=== PATIENT | female | born 1955 | race Caucasian/White ===

== ENCOUNTER → 2018-03-23 | Outpatient (CLI) | payer MEDICARE ==
[~2018-03-23] MED LIST: ALPR-475 PO; ASPI-515 PO; ATOR20TA PO; CARV6.2512 PO; ENOX60SY4 SQ; LISI5TAB7 PO; OXYC5TAB3 PO; WARF2.5T73 PO-COUM
== END | disposition home or self-care (01) ==
LOC: CFH 15:06
PROVIDERS: ATTEND Physician Assistant Surgical
DX: M94.262 Chondromalacia, left knee (principal); R60.0 Localized edema

== ENCOUNTER 2019-02-22 23:33 | Inpatient (IN) | payer MEDICARE ==
[~2019-02-22] VITALS: Ht 154.9 cm; Wt 57.0 kg
[~2019-02-22 23:33] MED LIST changes: +WARF2.5T32 PO-COUM; -WARF2.5T73 PO-COUM
--- NOTE | 2019-02-22 23:51 | NUR ---
TOÑO PARRA FROM [facility], [place] FOR EVAL BY VASCULAR SX FOR DX OF LLE DVT. L GROIN PAIN/LLE EDEMA X TWO DAYS. +STRONG/REGULAR PEDAL PULSES. PT DENIES CP/SOB PT DC'D FROM HOSPITAL 02/08 FOLLOWING PLACEMENT OF COLOSTOMY 02/02 FOR TX OF DIVERTICULITIS. HX OF CA. BP/SPO2/ECG MONITORING IN PLACE. NSR ON MONITOR. IV HEPARIN STOPPED UPON ARRIVAL. AWAITING ERP EVAL/ ORDERS.
[2019-02-23] MEDS ORDERED: SODIUM CHLORIDE FLUSH 10ML SYR IVF ONE (00:30)
--- NOTE | 2019-02-23 00:30 | NUR ---
PER ERP, AWAITING HEPARIN ADMIN FOR ANTI-Xa DRAW
[2019-02-23 00:41] LABS: BASOPHILS # (AUTO) 0.02 x10^3/uL (0-0.1); BASOPHILS % (AUTO) 0 % (0-1); EOSINOPHILS # (AUTO) 0.09 x10^3/uL (0-0.4); EOSINOPHILS % (AUTO) 1 % (1-7); LYMPHOCYTES % (AUTO) 18 % (22-44); MD NO; MEAN CORPUSCULAR HGB CONC 33.4 g/dL (32.4-35.8); MEAN PLATELET VOLUME 7.4 fL (7.4-10.4); MONOCYTES # (AUTO) 0.72 x10^3/uL (0.2-0.8); MONOCYTES % (AUTO) 8 % (2-9); NEUTROPHILS # (AUTO) 6.57 x10^3/uL (1.8-6.8); NEUTROPHILS % (AUTO) 73 % (42-75); PLATELET COUNT 461 x10^3/uL (130-400); RED BLOOD COUNT 3.38 x10^6/uL (3.82-5.3); RED CELL DISTRIBUTION WIDTH 14.5 % (9.6-15.2)
[2019-02-23 00:54] LABS: ALBUMIN 2.7 g/dL (3.4-5.0); ANION GAP 6 mmol/L (5-15); CALCIUM 8.8 mg/dL (8.5-10.1); CHLORIDE 105 mmol/L (98-107); CREATININE 0.51 mg/dL (0.55-1.02)
[2019-02-23 01:09] LABS: INTERNATIONAL NORMALIZED RATIO 1.14 (0.93-1.1); PROTHROMBIN TIME 11.9 Seconds (9.6-11.5)
[2019-02-23] MEDS ORDERED: HEPARIN 25,000 UNITS/500ML PMX 500 ML ONE (01:26)
--- NOTE | 2019-02-23 01:30 | NUR ---
HEPARIN STARTED. PER MARCELINA LOCKHART- BEGIN HEPARIN PROTOCOL IF AT 6HOUR RECHECK SINCE HEPARIN WAS STARTED HEAD MECHANIC. PER PROTOCOL, NO BOLUS GIVEN. HEPARIN STARTED PER PROTOCOL.
[2019-02-23] MEDS: HEPARIN 25,000 UNITS/500ML PMX 500 ML IV PRN (01:32)
[2019-02-23] MEDS: HEPARIN 5,000 UNITS/ML, 1ML IV PRN ×4 (01:33→23:18)
--- NOTE | 2019-02-23 01:58 | NUR ---
REPORT TO MARCELINA MESSER
[2019-02-23] MEDS ORDERED: ONDANSETRON 2MG/ML, 2ML IVPush PRN (02:00)
[2019-02-23] MEDS ORDERED: ONDANSETRON ODT 4 MG PO PRN (02:00)
[2019-02-23] MEDS ORDERED: DOCUSATE 100 MG CAPSULE PO PRN (02:00)
[2019-02-23] MEDS ORDERED: PROMETHAZINE 25 MG/ML, 1ML IM PRN (02:00)
[2019-02-23] MEDS ORDERED: POLYETHYLENE GLYCOL 17 GM PACKET PO PRN (02:00)
[2019-02-23] MEDS ORDERED: hydrALAzine 20 MG/ML, 1ML IVPush PRN (02:00)
[2019-02-23] MEDS ORDERED: BISACODYL 10 MG SUPP PR PRN (02:00)
[2019-02-23] MEDS ORDERED: morphine SULFATE 10 MG/ML, 1ML IVPush PRN (02:00)
[2019-02-23 02:14] VITALS: BP 118/57
[2019-02-23 02:23] LABS: FREE T4 (FREE THYROXINE) 1.36 ng/dL (0.76-1.46); THYROID STIMULATING HORMONE 1.95 mIU/L (0.358-3.740)
[2019-02-23 02:37] LABS: HEMOGLOBIN A1C 6.9 % (4.2-6.3)
[2019-02-23] MEDS: ACETAMINOPHEN 325 MG TABLET PO PRN ×2 (02:42→09:29)
[2019-02-23 06:56] VITALS: BP 109/58
[2019-02-23] MEDS: HYDROcodone/APAP 5/325 TABLET PO PRN ×2 (13:55→19:28)
[2019-02-23 13:58] VITALS: BP 119/62
[2019-02-23 18:59] VITALS: BP 114/62
[2019-02-24 00:33] VITALS: BP 117/59
[2019-02-24] MEDS: HEPARIN 25,000 UNITS/500ML PMX 500 ML IV PRN (02:50)
[2019-02-24] MEDS: HYDROcodone/APAP 5/325 TABLET PO PRN ×4 (02:51→21:41)
[2019-02-24 05:09] LABS: BASOPHILS # (AUTO) 0.03 x10^3/uL (0-0.1); BASOPHILS % (AUTO) 0 % (0-1); EOSINOPHILS # (AUTO) 0.11 x10^3/uL (0-0.4); EOSINOPHILS % (AUTO) 2 % (1-7); LYMPHOCYTES # (AUTO) 1.11 x10^3/uL (1-3.4); LYMPHOCYTES % (AUTO) 15 % (22-44); MD NO; MEAN CORPUSCULAR HEMOGLOBIN 27.3 pg (27.0-34.8); MEAN CORPUSCULAR HGB CONC 32.4 g/dL (32.4-35.8); MEAN CORPUSCULAR VOLUME 84.5 fL (80-100); MEAN PLATELET VOLUME 7.4 fL (7.4-10.4); MONOCYTES # (AUTO) 0.59 x10^3/uL (0.2-0.8); MONOCYTES % (AUTO) 8 % (2-9); NEUTROPHILS # (AUTO) 5.61 x10^3/uL (1.8-6.8); NEUTROPHILS % (AUTO) 75 % (42-75); PLATELET COUNT 449 x10^3/uL (130-400); RED BLOOD COUNT 3.23 x10^6/uL (3.82-5.3); RED CELL DISTRIBUTION WIDTH 14.8 % (9.6-15.2)
[2019-02-24 05:19] LABS: ALBUMIN 2.4 g/dL (3.4-5.0); ANION GAP 8 mmol/L (5-15); CHLORIDE 102 mmol/L (98-107)
[2019-02-24 05:24] LABS: ALANINE AMINOTRANSFERASE 11 U/L (12-78); ALKALINE PHOSPHATASE 72 U/L (45-117); BILIRUBIN,TOTAL 0.3 mg/dL (0.2-1.0); CHOL/HDL RATIO 4.5; CHOLESTEROL, TOTAL 131 mg/dL (140-239); HDL CHOL % 22 % (28-40); HDL CHOLESTEROL (DIRECT) 29 mg/dL (40-60); LDL CHOLESTEROL,CALCULATED 67 mg/dL (54-169); LDL/HDL RATIO 2.3 (0.5-3.0); TOTAL PROTEIN 6.9 g/dL (6.4-8.2); TRIGLYCERIDES 177 mg/dL (50-200); VLDL CHOLESTEROL 35 mg/dL (0-25)
[2019-02-24 08:26] VITALS: BP 112/61
[2019-02-24] MEDS ORDERED: POTASSIUM CHLORIDE 20 MEQ TAB.ER.PRT PO ONE (10:00)
[2019-02-24 12:18] VITALS: BP 112/54
[2019-02-24 20:22] VITALS: BP 118/61
[2019-02-24] MEDS: APIXABAN 5 MG TABLET PO SCH (21:41)
[2019-02-25 00:39] VITALS: BP 112/62
[2019-02-25] MEDS: HYDROcodone/APAP 5/325 TABLET PO PRN ×2 (04:27→13:54)
[2019-02-25 07:44] VITALS: BP 110/57
[2019-02-25] MEDS: APIXABAN 5 MG TABLET PO SCH (09:13)
[2019-02-25 14:45] VITALS: BP 102/60
[2019-02-25] MEDS ORDERED: APIX5TAB PO (15:44)
[2019-02-25] MEDS ORDERED: OXYC1TAB7 PO (15:44)
[2019-02-25] MEDS ORDERED: DOCU-131 PO (15:44)
[2019-02-25 16:17] VITALS: BP 110/52
== END 2019-02-25 18:00 | disposition home health service (06) | DRG 300 ==
LOC: ED 02-23 00:29 → EDIP 02-23 00:34 → ED 02-23 00:48 → 4NOR 02-23 02:10
PROVIDERS: ADMIT Internal Medicine; ATTEND Internal Medicine
DX: I82.442 Acute embolism and thrombosis of left tibial vein (principal); I42.9 Cardiomyopathy, unspecified; E44.0 Moderate protein-calorie malnutrition; I82.422 Acute embolism and thrombosis of left iliac vein; I82.432 Acute embolism and thrombosis of left popliteal vein; I82.412 Acute embolism and thrombosis of left femoral vein; D64.9 Anemia, unspecified; F32.9 Major depressive disorder, single episode, unspecified; F41.9 Anxiety disorder, unspecified; I51.3 Intracardiac thrombosis, not elsewhere classified; Z93.3 Colostomy status; Z92.3 Personal history of irradiation; Z92.21 Personal history of antineoplastic chemotherapy; Z86.73 Personal history of transient ischemic attack (TIA), and cerebral infarction without residual deficits; Z90.710 Acquired absence of both cervix and uterus; Z85.3 Personal history of malignant neoplasm of breast; Z83.3 Family history of diabetes mellitus; Z80.1 Family history of malignant neoplasm of trachea, bronchus and lung; Z79.01 Long term (current) use of anticoagulants; Z90.49 Acquired absence of other specified parts of digestive tract; Z68.23 Body mass index [BMI] 23.0-23.9, adult
CPT/HCPCS: 36415; 80048; 80053; 80061; 82040; 83036; 83735; 84439; 84443; 85025; 85520; 85610; 85730; 99285; G0378; J1644

== ENCOUNTER 2019-05-09 19:05 | Emergency (ER) | payer MEDICARE ==
[~2019-05-09] VITALS: Ht 154.9 cm; Wt 63.8 kg
[~2019-05-09 19:05] MED LIST changes: +APIX5TAB PO; +DOCU-131 PO; +OXYC1TAB7 PO
[2019-05-09] MEDS ORDERED: L.E.T SOLUTION TP ONE ×2 (19:41→20:00)
[2019-05-09 20:05] VITALS: BP 151/88
== END 2019-05-09 20:09 | disposition home or self-care (01) ==
LOC: ED 20:03
DX: K25.4 Chronic or unspecified gastric ulcer with hemorrhage (principal); Z48.01 Encounter for change or removal of surgical wound dressing; Z90.49 Acquired absence of other specified parts of digestive tract; Z90.710 Acquired absence of both cervix and uterus
CPT/HCPCS: 99282

== ENCOUNTER 2019-10-29 08:23 | Outpatient (CLI) | payer MEDICARE ==
[~2019-10-29 08:23] MED LIST changes: -ALPR-475 PO; +ALPR0.5T7 PO
[2019-10-29] MEDS ORDERED: ASPI-496 PO (09:44)
[2019-10-29] MEDS ORDERED: APIX5TAB PO (09:44)
== END 2019-10-29 23:59 | disposition home or self-care (01) ==
LOC: STAR 08:23
PROVIDERS: ATTEND Surgery
DX: Z01.818 Encounter for other preprocedural examination (principal); Z43.3 Encounter for attention to colostomy
CPT/HCPCS: 36415; 80053; 85025; 93005

== ENCOUNTER 2019-11-17 05:42 | Inpatient (IN) | payer MEDICARE ==
[~2019-11-17] VITALS: Ht 154.9 cm; Wt 67.4 kg
[~2019-11-17 05:42] MED LIST changes: +ASPI-496 PO
[2019-11-17] MEDS ORDERED: LACTATED RINGERS 1,000 ML IV SCH (06:03)
[2019-11-17 06:35] VITALS: BP 99/76
[2019-11-17] MEDS ORDERED: EPINEPHRINE 1 MG/ML, 1ML ONE (06:40)
[2019-11-17] MEDS ORDERED: BUPIVACAINE/PF 0.5% ONE (06:40)
[2019-11-17] MEDS ORDERED: INDOCYANINE GREEN 25 MG VIAL ONE (07:00)
[2019-11-17] MEDS ORDERED: PROPOFOL 10 MG/ML, 20ML ONE (07:14)
[2019-11-17] MEDS ORDERED: FENTANYL PF 250 MCG/5ML ONE (07:14)
[2019-11-17] MEDS ORDERED: SUCCINYLCHOLINE 20 MG/ML, 10ML ONE (07:14)
[2019-11-17] MEDS ORDERED: ROCURONIUM 10MG/ML,5ML ONE (07:14)
[2019-11-17] MEDS ORDERED: MIDAZOLAM 1 MG/ML, 2ML ONE (07:14)
[2019-11-17] MEDS ORDERED: ROPIvacaine/PF 0.5%, 30 ML ONE (07:19)
[2019-11-17] MEDS ORDERED: BUPIVACAINE/PF 0.25% ONE (07:20)
[2019-11-17] MEDS ORDERED: SCOPOLAMINE PATCH, 1.5MG PATCH.TD72 TD ONE (07:30)
[2019-11-17] MEDS ORDERED: ACETAMINOPHEN 500 MG TABLET PO ONE (07:30)
[2019-11-17] MEDS ORDERED: GABAPENTIN 300 MG CAPSULE PO ONE (07:30)
[2019-11-17] MEDS ORDERED: CEFAZOLIN 1,000 MG ONE ×2 (07:36)
[2019-11-17] MEDS ORDERED: DEXAMETHASONE 4 MG/ML, 1ML ONE ×2 (07:36)
[2019-11-17] MEDS ORDERED: SUGAMMADEX 200 MG/2 ML IVPush ONE (09:41)
[2019-11-17] MEDS ORDERED: ONDANSETRON 2MG/ML, 2ML ONE (09:41)
[2019-11-17] MEDS ORDERED: ONDANSETRON 2MG/ML, 2ML IVPush PRN (10:00)
[2019-11-17] MEDS ORDERED: LORazepam 2 MG/ML, 1ML IVPush PRN (10:00)
[2019-11-17] MEDS ORDERED: PROMETHAZINE 25 MG/ML, 1ML IV PRN (10:00)
[2019-11-17] MEDS ORDERED: SCOPOLAMINE PATCH, 1.5MG PATCH.TD72 TD PRN (10:00)
[2019-11-17] MEDS ORDERED: DIAZEPAM 5 MG/ML, 2ML IVPush PRN (10:00)
[2019-11-17] MEDS ORDERED: PROMETHAZINE 12.5 MG SUPP PR PRN (10:00)
[2019-11-17] MEDS ORDERED: EPHEDRINE 50 MG/ML, 1ML IVPush PRN (10:00)
[2019-11-17] MEDS ORDERED: FENTANYL PF 100 MCG/2ML IV PRN (10:00)
[2019-11-17] MEDS ORDERED: ONDANSETRON ODT 8 MG PO PRN (10:00)
[2019-11-17] MEDS ORDERED: ONDANSETRON 2MG/ML, 2ML IV PRN (10:00)
[2019-11-17] MEDS ORDERED: MEPERIDINE/PF 25MG/ML,1ML IVPush PRN (10:00)
[2019-11-17] MEDS ORDERED: FENTANYL PF 100 MCG/2ML IVPush PRN (10:00)
[2019-11-17] MEDS ORDERED: MIDAZOLAM 1 MG/ML, 2ML IV PRN (10:00)
[2019-11-17] MEDS ORDERED: hydrALAzine 20 MG/ML, 1ML IV PRN (10:00)
[2019-11-17] MEDS ORDERED: HYDROmorphone 1 MG/ML, 1ML INJ IVPush PRN (10:00)
[2019-11-17] MEDS ORDERED: CALCIUM CARBONATE 500 MG TAB.CHEW PO PRN (10:00)
[2019-11-17] MEDS ORDERED: LABETALOL 5MG/ML, 20ML IV PRN (10:00)
[2019-11-17] MEDS ORDERED: HALOPERIDOL 5 MG/ML IV PRN (10:00)
[2019-11-17] MEDS ORDERED: OXYcodone 5 MG/5 ML ORAL.SOL UDC PO PRN (10:00)
[2019-11-17] MEDS ORDERED: ALBUTEROL SULFATE 2.5 MG/3 ML NPPB PRN (10:00)
[2019-11-17] MEDS ORDERED: MEPERIDINE/PF 25MG/ML,1ML ONE (11:11)
[2019-11-17] MEDS ORDERED: D5%-0.45NACL+KCL 20MEQ 1,000 ML IV SCH (12:14)
[2019-11-17 12:22] VITALS: BP 101/44
[2019-11-17 12:45] VITALS: BP 104/46
[2019-11-17] MEDS: IBUPROFEN 800 MG TABLET PO SCH ×3 (12:58→20:11)
[2019-11-17] MEDS: OXYcodone IR 5MG TABLET PO PRN (12:58)
[2019-11-17 19:53] VITALS: BP 100/42
[2019-11-17] MEDS: CEFTRIAXONE PMX 2GM/50ML 50 ML IVPB SCH (20:11)
[2019-11-17] MEDS: ENOXAPARIN 30 MG/0.3 ML SQ SCH (20:12)
[2019-11-18 00:17] VITALS: BP 99/42
[2019-11-18] MEDS: OXYcodone IR 5MG TABLET PO PRN ×2 (02:49→08:08)
[2019-11-18 03:17] LABS: BASOPHILS # (AUTO) 0.02 x10^3/uL (0-0.1); BASOPHILS % (AUTO) 0 % (0-1); EOSINOPHILS % (AUTO) 0 % (1-7); LYMPHOCYTES # (AUTO) 0.92 x10^3/uL (1-3.4); LYMPHOCYTES % (AUTO) 8 % (22-44); MD NO; MEAN CORPUSCULAR HEMOGLOBIN 28.7 pg (27.0-34.8); MEAN CORPUSCULAR HGB CONC 32.8 g/dL (32.4-35.8); MEAN CORPUSCULAR VOLUME 87.4 fL (80-100); MEAN PLATELET VOLUME 8.3 fL (7.4-10.4); MONOCYTES # (AUTO) 0.62 x10^3/uL (0.2-0.8); MONOCYTES % (AUTO) 6 % (2-9); NEUTROPHILS # (AUTO) 9.37 x10^3/uL (1.8-6.8); NEUTROPHILS % (AUTO) 86 % (42-75); PLATELET COUNT 291 x10^3/uL (130-400); RED BLOOD COUNT 3.93 x10^6/uL (3.82-5.3); RED CELL DISTRIBUTION WIDTH 14.2 % (9.6-15.2)
[2019-11-18 03:18] LABS: ALBUMIN 2.8 g/dL (3.4-5.0); ANION GAP 8 mmol/L (5-15); CALCIUM 8.2 mg/dL (8.5-10.1); CHLORIDE 107 mmol/L (98-107); CREATININE 1.01 mg/dL (0.55-1.02)
[2019-11-18 03:56] VITALS: BP_SYST 105
[2019-11-18 07:17] VITALS: BP 94/43
[2019-11-18] MEDS: ENOXAPARIN 30 MG/0.3 ML SQ SCH ×2 (08:08→20:34)
[2019-11-18] MEDS: IBUPROFEN 800 MG TABLET PO SCH ×3 (08:08→20:35)
[2019-11-18] MEDS: INSULIN LISPRO 100 UNITS/ML, PEN SQ-INSULIN SCH ×3 (12:09→21:05)
[2019-11-18 13:02] VITALS: BP 92/41
[2019-11-18 19:09] VITALS: BP 95/38
[2019-11-18] MEDS: CEFTRIAXONE PMX 2GM/50ML 50 ML IVPB SCH (20:34)
[2019-11-19 01:28] VITALS: BP 105/40
[2019-11-19 03:10] LABS: BASOPHILS # (AUTO) 0.02 x10^3/uL (0-0.1); BASOPHILS % (AUTO) 0 % (0-1); EOSINOPHILS # (AUTO) 0.28 x10^3/uL (0-0.4); EOSINOPHILS % (AUTO) 4 % (1-7); LYMPHOCYTES # (AUTO) 1.47 x10^3/uL (1-3.4); LYMPHOCYTES % (AUTO) 18 % (22-44); MD NO; MEAN CORPUSCULAR HGB CONC 33.2 g/dL (32.4-35.8); MEAN CORPUSCULAR VOLUME 87.4 fL (80-100); MEAN PLATELET VOLUME 8.7 fL (7.4-10.4); MONOCYTES # (AUTO) 0.51 x10^3/uL (0.2-0.8); MONOCYTES % (AUTO) 6 % (2-9); NEUTROPHILS # (AUTO) 5.76 x10^3/uL (1.8-6.8); NEUTROPHILS % (AUTO) 72 % (42-75); PLATELET COUNT 241 x10^3/uL (130-400); RED BLOOD COUNT 3.46 x10^6/uL (3.82-5.3); RED CELL DISTRIBUTION WIDTH 13.9 % (9.6-15.2)
[2019-11-19 03:18] LABS: ALBUMIN 2.6 g/dL (3.4-5.0); ANION GAP 7 mmol/L (5-15); CALCIUM 8.4 mg/dL (8.5-10.1); CHLORIDE 109 mmol/L (98-107); CREATININE 0.58 mg/dL (0.55-1.02)
[2019-11-19 07:42] VITALS: BP 120/49
[2019-11-19 08:15] VITALS: BP 105/95
[2019-11-19] MEDS ORDERED: PSYLLIUM PACKET ONE (08:29)
[2019-11-19] MEDS: INSULIN LISPRO 100 UNITS/ML, PEN SQ-INSULIN SCH (08:34)
[2019-11-19] MEDS: ENOXAPARIN 30 MG/0.3 ML SQ SCH (08:35)
[2019-11-19] MEDS: IBUPROFEN 800 MG TABLET PO SCH (08:35)
[2019-11-19] MEDS ORDERED: PSYLLIUM PACKET PO SCH (09:00)
[2019-11-19] MEDS ORDERED: OXYC5TAB3 PO (09:32)
[2019-11-19 11:17] VITALS: BP 109/51
== END 2019-11-19 12:00 | disposition home or self-care (01) | DRG 330 ==
LOC: ORIP 05:42 → 4NE 11:54
PROVIDERS: ADMIT Surgery; ATTEND Surgery
PROC: 3E0T3BZ Introduction of Anesthetic Agent into Peripheral Nerves and Plexi, Percutaneous Approach (ICD-10-PCS; 2019-11-17)
PROC: 8E0W4CZ Robotic Assisted Procedure of Trunk Region, Percutaneous Endoscopic Approach (ICD-10-PCS; 2019-11-17)
PROC: 0DBN4ZZ Excision of Sigmoid Colon, Percutaneous Endoscopic Approach (ICD-10-PCS; 2019-11-17)
PROC: 0DSL4ZZ Reposition Transverse Colon, Percutaneous Endoscopic Approach (ICD-10-PCS; principal; 2019-11-17 07:30)
DX: Z43.3 Encounter for attention to colostomy (principal); E44.0 Moderate protein-calorie malnutrition; I25.10 Atherosclerotic heart disease of native coronary artery without angina pectoris; I50.9 Heart failure, unspecified; Z83.3 Family history of diabetes mellitus; Z82.49 Family history of ischemic heart disease and other diseases of the circulatory system; Z85.3 Personal history of malignant neoplasm of breast; Z91.048 Other nonmedicinal substance allergy status; K43.2 Incisional hernia without obstruction or gangrene
CPT/HCPCS: 36415; 80048; 82040; 82962; 85025; 88307; G0378; J0171; J0690; J0696; J1100; J1650; J2250; J2405; J2704; J2795; J3010; J3490; J0330; J1815; J2175; J3480; J7120

== ENCOUNTER 2020-06-09 12:02 | Outpatient (CLI) | payer MEDICARE ==
[2020-06-13] MEDS ORDERED: METFORMIN (11:27)
[2020-06-15] MEDS ORDERED: OXYC5TAB3 PO (11:59)
[2020-06-15] MEDS ORDERED: PROM25TA10 PO (11:59)
== END 2020-06-09 23:59 | disposition home or self-care (01) ==
LOC: STAR 12:02
PROVIDERS: ATTEND Anesthesiology
DX: Z01.818 Encounter for other preprocedural examination (principal); Z11.59 Encounter for screening for other viral diseases
CPT/HCPCS: 36415; 87635